=== PATIENT | female | born 2000 | race Caucasian/White ===

== ENCOUNTER 2020-05-25 21:02 | Emergency (ER) | payer OTHER, SELFPAY ==
--- NOTE | ~2020-05-25 | XR_ITS ---
XR ankle LT min 3V DATE: 05/25/2020 21:37 INDICATION: Fall while jogging today. Swelling and pain at lateral aspect of ankle. TECHNIQUE: 4 views COMPARISON: None FINDINGS: There is a nondisplaced spiral fracture of the distal fibular diametaphysis. There is overl marv lateral soft tissue swelling. No dislocation is evident. The medial malleolus and posterior malleolus are intact. IMPRESSION: Nondisplaced spiral fracture of the distal fibular diametaphysis with overlying soft tiss ue swelling Reviewed, dictated and finalized at location A. [employer] TECHNICIAN IMPRESSION: Nondisplaced spiral fracture of the distal fibular diametaphysis wi th overlying soft tissue swelling
[2020-05-25 21:10] VITALS: BP 122/83; PULSE 85; RESP 18; TEMP 36.6; O2SAT 99
--- NOTE | 2020-05-25 21:26 | ED.ABDPAIN ---
HPI - Abdominal Pain General Chief Complaint: Extremity Injury, Lower <Ramone Pack PA-C - Last Filed: 05/25/20 21:44> Stated Complaint: Fall, Leg pain <Ramone Pack PA-C - Last Filed: 05/25/20 21:44> Time Seen by Provider: 05/25/20 21:08 <Ramone Pack PA-C - Last Filed: 05/25/20 21:44> Source: patient and family <Ramone Pack PA-C - Last Filed: 05/25/20 21:44> Mode of arrival: ambulatory <Ramone Pack PA-C - Last Filed: 05/25/20 21:44> Limitations: no limitations <MORA Doherty Last Filed: 05/25/20 21:44> History of Present Illness HPI narrative: Patient is a 19-year-old female who presents to emergency department for evaluation of left ankle injury that occurred after slipping on the ice just prior to arrival presents with moderate aching pain to the ankle joint worse along the lateral aspect worse with activity weightbearing and movement. Patient is not anything for pain presents an uncomfortable state but in no distress <Ramone Pack PA-C - Last Filed: 05/25/20 21:44> Related Data Allergies/Adverse Reactions: Allergies Allergy/AdvReac Type Severity Reaction Status Date / Time latex Allergy Rash Verified 05/25/20 21:12 Penicillins Allergy Rash Verified 05/25/20 21:12 <Ramone Pack PA-C - Last Filed: 05/25/20 21:44> Review of Systems Review of Systems: All systems reviewed & are unremarkable except as noted in HPI and below <Ramone Pack PA-C - Last Filed: 05/25/20 21:44> PMFSH Social History Social History: Social History (Updated 05/25/20 @ 21:31 by Ramone Pack PA-C) Smoking status: Never smoker <Ramone Pack PA-C - Last Filed: 05/25/20 21:44> Exam Narrative: Exam Narrative: GENERAL: Well-appearing, well-nourished, uncomfortable and in no acute distress. HEAD: Normocephalic, atraumatic. EYES: PERRLA and EOMI. ENT: Nares clear, no rhinorrhea or epistaxis. Mucous membranes moist. EXTREMITIES: Bruising swelling and tenderness at the ankle joint worse along the lateral aspect SKIN: Warm, dry, no rash. NEURO: No focal deficits. Alert and oriented x3. Neurovascularly intact PSYCH: Normal mood and affect. <Ramone Pack PA-C - Last Filed: 05/25/20 21:44> Course Course Emergency Course: Patient with right ankle fracture placed in an OCL splint with crutches with orthopedic follow-up neurovascularly intact felt appropriate for outpatient reevaluation <Ramone Pack PA-C - Last Filed: 05/25/20 21:44> Vital Signs Vital signs: Vital Signs Temperature 36.6 C 05/25/20 21:10 Pulse Rate 85 05/25/20 21:10 Respiratory Rate 18 05/25/20 21:10 Blood Pressure 122/83 05/25/20 21:10 Pulse Oximetry 99 05/25/20 21:10 Temperature 36.6 C 05/25/20 21:10 Pulse Rate 85 05/25/20 21:10 Respiratory Rate 18 05/25/20 21:10 Blood Pressure 122/83 05/25/20 21:10 Pulse Oximetry 99 05/25/20 21:10 <Ramone Pack PA-C - Last Filed: 05/25/20 21:44> Vital Signs Temperature 36.6 C 05/25/20 21:10 Pulse Rate 85 05/25/20 21:10 Respiratory Rate 18 05/25/20 21:10 Blood Pressure 122/83 05/25/20 21:10 Pulse Oximetry 99 05/25/20 21:10 Temperature 36.6 C 05/25/20 21:10 Pulse Rate 85 05/25/20 21:10 Respiratory Rate 18 05/25/20 21:10 Blood Pressure 122/83 05/25/20 21:10 Pulse Oximetry 99 05/25/20 21:10 <Wilfrid Cortez MD - Last Filed: 05/25/20 21:46> MDM - Abdominal Pain MDM Narrative Medical decision making narrative: Patients injury or pain is consistent with musculoskeletal etiology. No signs of neurological or vascular compromise on exam. Compartments and tisues are soft without signs of compartment syndrome. Pain is felt appropriate for further evaluation on an outpatient basis. <MOAR Doherty Last Filed: 05/25/20 21:44> Imaging Data Radiologist's impression: Distal left fibula fracture
[2020-05-25] MEDS: IBUPROFEN 600 MG TABLET PO (21:37)
--- NOTE | 2020-05-25 22:21 | PC.NURSE ---
this rn at bedside to instruct pt how to ambulate with crutches. pt ambulatory with steady gait to use restroom and return to her room .
== END 2020-05-25 22:50 | disposition home or self-care (01) ==
LOC: ANHED 21:52
PROVIDERS: Emergency Provider Emergency Medicine
DX: S82.892A Other fracture of left lower leg, initial encounter for closed fracture (principal); W00.0XXA Fall on same level due to ice and snow, initial encounter
CPT/HCPCS: 29515; 73610; 99284; A9270